=== PATIENT | male | born 1995 | race Caucasian/White ===

== ENCOUNTER 2016-12-27 16:07 | Emergency (ER) | payer MEDICAID ==
[~2016-12-27] VITALS: Ht 175.3 cm; Wt 79.4 kg
[~2016-12-27 16:07] MED LIST: AUGMENTIN 875-1 EAC1 ORAL; AUGMENTIN TAB875 MG ORAL; METRONIDAZOLE500 MG ORAL; NORCO 5-325 TA1 EACH ORAL; PREDNISONE20 MG ORAL
[2016-12-27] MEDS ORDERED: IBUPROFEN600 MG ORAL (17:56)
[2016-12-27] MEDS ORDERED: AMOXICILLIN500 MG ORAL (17:56)
[2016-12-27 18:02] VITALS: BP 119/67
[2016-12-27 18:03] VITALS: BP 1/1
--- NOTE | 2016-12-27 18:17 | Emergency Room Report ---
History of Present Illness General Chief Complaint: Earache Source: Patient Present Illness HPI 21YOM [employer] patient with right earache for 2 days. No associated fever/chills, sore throat, chest pain, SOB, rhinorrhea No sick contacts Allergies: Coded Allergies: No Known Allergies (Unverified , 07/08/13) Patient History Past Medical History: none Past Surgical History: none Pertinent Family History: none Social History: Denies: alcohol use, drug use, smoking Immunizations: UTD Reviewed Nursing Documentation: PMH: Agreed, PSxH: Agreed Nursing Documentation-PMH Past Medical History: No Stated History Review of Systems All Other Systems: negative except mentioned in HPI Physical Exam Vital Signs Date Time Temp Pulse Resp B/P Pulse Ox O2 Delivery O2 Flow Rate FiO2 12/27/16 16:09 97.9 75 20 119/67 99 Room Air Sp02 EP Interpretation: reviewed, normal General Appearance: normal inspection, well appearing, no apparent distress, alert, GCS 15, non-toxic Head: normocephalic, atraumatic Eyes: bilateral eye EOMI, bilateral eye PERRL ENT: normal ENT inspection, hearing grossly normal, no angioedema, normal voice , TMs + canals normal, uvula midline, pharyngeal erythema, tonsillar exudate Neck: normal inspection, full range of motion, supple, thyroid normal, no meningismus, no bony tend Respiratory: normal inspection, lungs clear, normal breath sounds, no respiratory distress, no retraction, no wheezing Cardiovascular #1: regular rate, rhythm, no edema Gastrointestinal: normal inspection, normal bowel sounds, non tender, soft, no guarding, no hernia Genitourinary: no CVA tenderness Musculoskeletal: normal inspection, back normal, normal range of motion, Andrea' s Sign negative Neurologic: normal inspection, alert, oriented x3, responsive, accounting coordinator III-XII nml as tested, motor strength/tone normal, speech normal Psychiatric: normal inspection, judgement/insight normal, mood/affect normal Skin: normal inspection, normal color, no rash Medical Decision Making Diagnostic Impression: Primary Impression: Earache, right Additional Impression: Strep pharyngitis ER Course 21YOM with right earache VSS. Afebrile. Actually has right sided strep pharyngitis + exudate, erythema No [employer] Rx Amox, Ibuprofen DC home PMD followup Last Vital Signs Date Time Temp Pulse Resp B/P Pulse Ox O2 Delivery O2 Flow Rate FiO2 12/27/16 18:03 1/1 12/27/16 18:02 97.9 20 99 Room Air 12/27/16 16:09 75 Status: improved Disposition: HOME, SELF-CARE Condition: Improved Scripts Ibuprofen* (MOTRIN*) 600 Mg Tablet 600 MG ORAL THREE TIMES A DAY for 7 Days, #30 TAB 0 Refills Prov: ADDI ROSS M.D. 12/27/16 Amoxicillin* (AMOXIL*) 500 Mg Capsule 500 MG ORAL THREE TIMES A DAY for 7 Days, #21 CAP Prov: ADDI ROSS M.D. 12/27/16 Referrals: [facility],REFERRING (PCP) Patient Instructions: Pharyngitis, [id number] ADDI ROSS M.D. Dec 27, 2016 18:17
== END 2016-12-27 18:03 | disposition home or self-care (01) ==
LOC: EMR 18:00
DX: H92.01 Otalgia, right ear (principal); J02.0 Streptococcal pharyngitis
CPT/HCPCS: 99284